=== PATIENT | male | born 1985 | race Caucasian/White ===

== ENCOUNTER 2020-02-27 23:14 | Emergency (ER) | payer OTHER ==
[~2020-02-27] VITALS: Ht 162.6 cm; Wt 72.6 kg
[2020-02-27 23:15] VITALS: BP 154/106
[2020-02-27] MEDS ORDERED: COZAAR100 MG PO (23:23)
[2020-02-28] MEDS ORDERED: TESSALON PERLE100 MG PO (00:32)
[2020-02-28] MEDS ORDERED: PROAIR HFA8.5 GM INH (00:32)
== END 2020-02-28 00:52 | disposition home or self-care (01) ==
LOC: ER 23:14
DX: R05 Cough (principal); R06.02 Shortness of breath; F17.210 Nicotine dependence, cigarettes, uncomplicated; I10 Essential (primary) hypertension; Z03.818 Encounter for observation for suspected exposure to other biological agents ruled out; Z79.899 Other long term (current) drug therapy